=== PATIENT | male | born 1935 | race Caucasian/White ===

== ENCOUNTER → 2019-03-21 | Outpatient (CLI) | payer OTHER | LOC: M.WC 07:42 | DX: S51.811A Laceration without foreign body of right forearm, initial encounter (principal); S81.812A Laceration without foreign body, left lower leg, initial encounter; S61.411A Laceration without foreign body of right hand, initial encounter; I10 Essential (primary) hypertension; K21.9 Gastro-esophageal reflux disease without esophagitis; M19.90 Unspecified osteoarthritis, unspecified site; M81.0 Age-related osteoporosis without current pathological fracture; F41.9 Anxiety disorder, unspecified; Z79.82 Long term (current) use of aspirin; W19.XXXA Unspecified fall, initial encounter; Y93.89 Activity, other specified; Y92.89 Other specified places as the place of occurrence of the external cause; Y99.8 Other external cause status ==

== ENCOUNTER → 2019-03-24 | Outpatient (CLI) | payer OTHER | LOC: M.WC 05:00 | DX: S51.811A Laceration without foreign body of right forearm, initial encounter (principal); S81.812A Laceration without foreign body, left lower leg, initial encounter; S61.212A Laceration without foreign body of right middle finger without damage to nail, initial encounter; I10 Essential (primary) hypertension; K21.9 Gastro-esophageal reflux disease without esophagitis; M81.0 Age-related osteoporosis without current pathological fracture; M19.90 Unspecified osteoarthritis, unspecified site; F41.9 Anxiety disorder, unspecified; Z79.82 Long term (current) use of aspirin; W19.XXXA Unspecified fall, initial encounter; Y93.89 Activity, other specified; Y92.89 Other specified places as the place of occurrence of the external cause; Y99.8 Other external cause status ==

== ENCOUNTER → 2019-03-28 | Outpatient (CLI) | payer OTHER | LOC: M.WC 04:31 | DX: S51.811D Laceration without foreign body of right forearm, subsequent encounter (principal); S81.812D Laceration without foreign body, left lower leg, subsequent encounter; I10 Essential (primary) hypertension; K21.9 Gastro-esophageal reflux disease without esophagitis; M81.0 Age-related osteoporosis without current pathological fracture; M19.90 Unspecified osteoarthritis, unspecified site; W19.XXXD Unspecified fall, subsequent encounter ==

== ENCOUNTER → 2019-03-31 | Outpatient (CLI) | payer OTHER | LOC: M.WC 00:38 | DX: S51.811D Laceration without foreign body of right forearm, subsequent encounter (principal); S81.812D Laceration without foreign body, left lower leg, subsequent encounter; I10 Essential (primary) hypertension; K21.9 Gastro-esophageal reflux disease without esophagitis; M81.0 Age-related osteoporosis without current pathological fracture; M19.90 Unspecified osteoarthritis, unspecified site; F41.9 Anxiety disorder, unspecified; W19.XXXD Unspecified fall, subsequent encounter ==

== ENCOUNTER → 2019-04-04 | Outpatient (CLI) | payer OTHER | LOC: M.WC 07:09 | DX: S51.811D Laceration without foreign body of right forearm, subsequent encounter (principal); S81.812D Laceration without foreign body, left lower leg, subsequent encounter; I10 Essential (primary) hypertension; K21.9 Gastro-esophageal reflux disease without esophagitis; M19.90 Unspecified osteoarthritis, unspecified site; M81.0 Age-related osteoporosis without current pathological fracture; F41.9 Anxiety disorder, unspecified; W19.XXXD Unspecified fall, subsequent encounter ==

== ENCOUNTER → 2019-04-07 | Outpatient (CLI) | payer OTHER | LOC: M.WC 05:09 | DX: S51.811D Laceration without foreign body of right forearm, subsequent encounter (principal); S81.812D Laceration without foreign body, left lower leg, subsequent encounter; I10 Essential (primary) hypertension; K21.9 Gastro-esophageal reflux disease without esophagitis; M19.90 Unspecified osteoarthritis, unspecified site; M81.0 Age-related osteoporosis without current pathological fracture; F41.9 Anxiety disorder, unspecified; W19.XXXD Unspecified fall, subsequent encounter ==

== ENCOUNTER → 2019-04-11 | Outpatient (CLI) | payer OTHER | LOC: M.WC 01:50 | DX: S81.812D Laceration without foreign body, left lower leg, subsequent encounter (principal); S51.811D Laceration without foreign body of right forearm, subsequent encounter; M19.90 Unspecified osteoarthritis, unspecified site; M81.0 Age-related osteoporosis without current pathological fracture; K21.9 Gastro-esophageal reflux disease without esophagitis; F41.9 Anxiety disorder, unspecified; X58.XXXD Exposure to other specified factors, subsequent encounter ==

== ENCOUNTER → 2019-04-14 | Outpatient (CLI) | payer OTHER | LOC: M.WC 00:12 | DX: S51.811D Laceration without foreign body of right forearm, subsequent encounter (principal); S81.812D Laceration without foreign body, left lower leg, subsequent encounter; I10 Essential (primary) hypertension; K21.9 Gastro-esophageal reflux disease without esophagitis; M81.0 Age-related osteoporosis without current pathological fracture; M19.90 Unspecified osteoarthritis, unspecified site; F41.9 Anxiety disorder, unspecified; W19.XXXD Unspecified fall, subsequent encounter ==

== ENCOUNTER → 2019-04-18 | Outpatient (CLI) | payer OTHER | LOC: M.WC 04:58 | DX: S81.812D Laceration without foreign body, left lower leg, subsequent encounter (principal); I10 Essential (primary) hypertension; K21.9 Gastro-esophageal reflux disease without esophagitis; M81.0 Age-related osteoporosis without current pathological fracture; M19.90 Unspecified osteoarthritis, unspecified site; F41.9 Anxiety disorder, unspecified; W19.XXXD Unspecified fall, subsequent encounter ==

== ENCOUNTER → 2019-04-25 | Outpatient (CLI) | payer OTHER | LOC: M.WC 05:04 | DX: S81.812D Laceration without foreign body, left lower leg, subsequent encounter (principal); I10 Essential (primary) hypertension; K21.9 Gastro-esophageal reflux disease without esophagitis; M81.0 Age-related osteoporosis without current pathological fracture; M19.90 Unspecified osteoarthritis, unspecified site; F41.9 Anxiety disorder, unspecified; W19.XXXD Unspecified fall, subsequent encounter ==